=== PATIENT | female | born 1980 | race Caucasian/White ===

== ENCOUNTER → 2017-03-30 | Outpatient (CLI) | payer MEDICAID ==
[2017-03-30 19:01] LABS: BASOPHILS % (AUTO) 0.3 %; EOSINOPHILS # (AUTO) 0.2 10^3/uL (0.0-0.7); HCT - HEMATOCRIT 39.2 % (37.0-47.0); HGB - HEMOGLOBIN 13.1 g/dL (12.0-16.0); LYMPHOCYTES # (AUTO) 2.4 10^3/uL (1.5-3.5); LYMPHOCYTES % (AUTO) 40.4 %; MEAN CORPUSCULAR HEMOGLOBIN 28.2 pg (27.0-31.0); MEAN CORPUSCULAR HGB CONC 33.3 g/dL (32.0-36.0); MEAN CORPUSCULAR VOLUME 84.6 fL (81.0-99.0); MEAN PLATELET VOLUME 10.6 fL (7.9-10.8); MONOCYTES # (AUTO) 0.5 10^3/uL (0.0-1.0); MONOCYTES % (AUTO) 8.7 %; NEUTROPHILS # (AUTO) 2.7 10^3/uL (1.5-6.6); NEUTROPHILS % (AUTO) 46.6 %; RED BLOOD COUNT 4.63 10^6/uL (4.20-5.40); RED CELL DISTRIBUTION WIDTH 14.3 % (12.0-15.0); UNCORRECTED WHITE BLOOD COUNT 5.9 x10^3/uL; WHITE BLOOD COUNT 5.9 x10^3/uL (4.8-10.8)
[2017-03-30 19:30] LABS: ALBUMIN/GLOBULIN RATIO 1.2 (1.0-2.2); BILIRUBIN,TOTAL 0.4 mg/dL (0.2-1.0); BUN - BLOOD UREA NITROGEN 13 mg/dL (6-20); CARBON DIOXIDE - CO2 25 mmol/L (21-32); CHLORIDE 106 mmol/L (101-111); CREATININE 0.7 mg/dL (0.4-1.0); GFR - MDRD 95 (>89); GLUCOSE 86 mg/dL (70-100); POTASSIUM 4.1 mmol/L (3.5-5.0); SODIUM 136 mmol/L (135-145); TOTAL PROTEIN 7.5 g/dL (6.7-8.2)
== END ==
LOC: LAB.N 15:22
PROVIDERS: ATTEND Physician Assistant Medical
DX: Z00.00 Encounter for general adult medical examination without abnormal findings (principal); F32.9 Major depressive disorder, single episode, unspecified; F70 Mild intellectual disabilities; R56.9 Unspecified convulsions; Z51.81 Encounter for therapeutic drug level monitoring
CPT/HCPCS: 36415; 80053; 80177; 84443; 85025

== ENCOUNTER 2017-11-08 11:08 | Outpatient (CLI) | payer MEDICAID | END 2017-11-08 11:09 | LOC: LAB.N 11:08 | PROVIDERS: ATTEND Physician Assistant Medical | DX: Z51.81 Encounter for therapeutic drug level monitoring (principal) | CPT/HCPCS: 36415; 80177 ==

== ENCOUNTER 2018-12-24 13:38 | Outpatient (CLI) | payer MEDICAID ==
--- NOTE | 2018-12-26 02:46 | XRAY Report ---
Reason: WRIST JOINT PAIN Procedure Date: 12/24/2018 Accession Number: [id number] / [id number] Procedure: XRN - Wrist 3 View LT CPT Code: FULL RESULT: EXAM: LEFT WRIST RADIOGRAPHY EXAM DATE: 12/24/2018 02:01 PM. CLINICAL HISTORY: WRIST JOINT PAIN. COMPARISON: None. TECHNIQUE: 3 views. FINDINGS: Bones: No fracture seen. No acute osseous abnormality. Joints: No dislocation seen. Joint spaces appear preserved. Soft Tissues: Mild soft tissue swelling. IMPRESSION: 1. No fracture or dislocation seen. RADIA
== END 2018-12-24 13:39 | disposition home or self-care (01) ==
LOC: DI.N 13:38
PROVIDERS: ATTEND Family Medicine
DX: M25.532 Pain in left wrist (principal)

== ENCOUNTER 2018-12-31 08:00 | Outpatient (CLI) | payer MEDICAID | END 2018-12-31 23:59 | disposition home or self-care (01) | LOC: LAB.N 08:00 | PROVIDERS: ATTEND Physician Assistant Medical | DX: Z51.81 Encounter for therapeutic drug level monitoring (principal) | CPT/HCPCS: 36415; 80177 ==

== ENCOUNTER 2020-10-21 08:00 | Outpatient (CLI) | payer MEDICAID ==
[2020-10-21 17:54] LABS: BASOPHILS # (AUTO) 0.1 10^3/uL (0.0-0.1); BASOPHILS % (AUTO) 0.9 %; EOSINOPHILS # (AUTO) 0.2 10^3/uL (0.0-0.7); EOSINOPHILS % (AUTO) 4.3 %; HCT - HEMATOCRIT 40.4 % (37.0-47.0); HGB - HEMOGLOBIN 12.2 g/dL (12.0-16.0); LYMPHOCYTES # (AUTO) 2.1 10^3/uL (1.5-3.5); MEAN CORPUSCULAR HEMOGLOBIN 25.1 pg (27.0-31.0); MEAN CORPUSCULAR HGB CONC 30.2 g/dL (32.0-36.0); MEAN PLATELET VOLUME 12.1 fL (7.9-10.8); MONOCYTES # (AUTO) 0.5 10^3/uL (0.0-1.0); MONOCYTES % (AUTO) 8.9 %; NEUTROPHILS # (AUTO) 2.7 10^3/uL (1.5-6.6); NEUTROPHILS % (AUTO) 48.7 %; PLT - PLATELET COUNT 328 10^3/uL (130-450); RED BLOOD COUNT 4.87 10^6/uL (4.20-5.40); RED CELL DISTRIBUTION WIDTH 14.6 % (12.0-15.0); WHITE BLOOD COUNT 5.6 x10^3/uL (4.8-10.8)
[2020-10-21 18:06] LABS: ALBUMIN 4.5 g/dL (3.2-5.5); ALBUMIN/GLOBULIN RATIO 1.4 (1.0-2.2); BILIRUBIN,TOTAL 0.5 mg/dL (0.2-1.0); CALCIUM 9.2 mg/dL (8.5-10.3); CREATININE 0.7 mg/dL (0.4-1.0); POTASSIUM 3.9 mmol/L (3.5-5.0); TOTAL PROTEIN 7.7 g/dL (6.7-8.2)
[2020-10-21 18:21] LABS: THYROID STIMULATING HORMONE 1.52 uIU/mL (0.34-5.60)
== END 2020-10-21 23:59 | disposition home or self-care (01) ==
LOC: LAB.WCP 08:00
PROVIDERS: ATTEND Family Medicine
DX: R63.4 Abnormal weight loss (principal); G40.909 Epilepsy, unspecified, not intractable, without status epilepticus
CPT/HCPCS: 36415; 80053; 84443; 85025

== ENCOUNTER 2022-08-21 12:48 | Outpatient (CLI) | payer MEDICAID | END 2022-08-21 12:49 | disposition critical access hospital (66) | LOC: EMS 12:48 | DX: R55 Syncope and collapse (principal) | CPT/HCPCS: A0425; A0429; A0999 ==

== ENCOUNTER 2022-08-21 13:08 | Emergency (ER) | payer MEDICAID ==
[2022-08-21 13:31] LABS: BASOPHILS % (AUTO) 0.6 %; EOSINOPHILS # (AUTO) 0.2 10^3/uL (0.0-0.7); HCT - HEMATOCRIT 36.4 % (37.0-47.0); HGB - HEMOGLOBIN 11.8 g/dL (12.0-16.0); LYMPHOCYTES # (AUTO) 1.3 10^3/uL (1.5-3.5); LYMPHOCYTES % (AUTO) 21.2 %; MEAN CORPUSCULAR HGB CONC 32.4 g/dL (32.0-36.0); MEAN CORPUSCULAR VOLUME 86.3 fL (81.0-99.0); MEAN PLATELET VOLUME 11.2 fL (7.9-10.8); MONOCYTES # (AUTO) 0.5 10^3/uL (0.0-1.0); NEUTROPHILS # (AUTO) 4.2 10^3/uL (1.5-6.6); NEUTROPHILS % (AUTO) 66.9 %; PLT - PLATELET COUNT 211 10^3/uL (130-450); RED BLOOD COUNT 4.22 10^6/uL (4.20-5.40); RED CELL DISTRIBUTION WIDTH 14.2 % (12.0-15.0); WHITE BLOOD COUNT 6.3 x10^3/uL (4.8-10.8)
[2022-08-21 13:42] LABS: ALBUMIN 3.4 g/dL (3.2-5.5); ALBUMIN/GLOBULIN RATIO 1.2 (1.0-2.2); BILIRUBIN,TOTAL 0.3 mg/dL (0.2-1.0); CALCIUM 8.1 mg/dL (8.5-10.3); CREATININE 0.7 mg/dL (0.4-1.0); POTASSIUM 3.2 mmol/L (3.5-5.0); TOTAL PROTEIN 6.3 g/dL (6.7-8.2)
--- NOTE | 2022-08-21 13:52 | ED Physician Documentation ---
History of Present Illness - Stated complaint Stated Complaint: SYNCOPE - Chief complaint Chief Complaint: Neuro - History obtained from History obtained from: Patient, EMS - Additonal information Additional information: The patient is brought to the emergency department via EMS for chief complaint of a near syncopal episode while at work at am-pm today. The patient states that she was at work and standing up when she suddenly began to feel dizzy. She leaned back against the wall and was reported to get a blank look on her face and slide down a sitting position on the floor. The patient remembers not feeling well and feeling dizzy but did not lose consciousness. She did not hit her head. The patient states she still feeling lightheaded and does note that she never ate anything today. She also admits she has not been drinking very much water. She states this kind of thing has happened to her before but nobody has ever been able to find anything wrong. She denies any chest pain or s hortness of breath. No palpitations. She denies any nausea or vomiting. No other complaints at this time. She has not been ill with anything recently. She is not a diabetic. PD PAST MEDICAL HISTORY - Past Medical History Cardiovascular: None Respiratory: None Endocrine/Autoimmune: None GI: None : None HEENT: None, Other Psych: Depression Musculoskeletal: None Derm: Other - Past Surgical History Past Surgical History: No - Present Medications Home Medications: Ambulatory Orders Medication Instructions Recorded Confirmed Citalopram Hydrobromide 20 mg PO DAILY 04/06/16 04/06/16 [Citalopram HBr] Acetaminophen [Tylenol] 650 mg PO Q4HR PRN #0 tablet 04/07/16 Levetiracetam [Keppra] 500 mg PO BID #60 tablet 04/07/16 - Allergies Allergies/Adverse Reactions: Allergies Allergy/AdvReac Type Severity Reaction Status Date / Time No Known Drug Allergies Allergy Verified 08/21/22 13:17 - Social History Does the pt smoke?: No Smoking Status: Never smoker Does the pt drink ETOH?: No Does the pt have substance abuse?: No PD ED PE NORMAL - Vitals Vital signs reviewed: Yes - General General: Alert and oriented X 3, No acute distress, Well developed/nourished - HEENT HEENT: Atraumatic, PERRL, EOMI, Moist mucous membranes - Neck Neck: Supple, no meningeal sign - Cardiac Cardiac: RRR, No murmur, Strong equal pulses - Respiratory Respiratory: No respiratory distress, Clear bilaterally - Abdomen Abdomen: Soft, Non tender, Non distended - Derm Derm: Warm and dry, No rash, Other (Mild pallor) - Extremities Extremities: No deformity, No edema - Neuro Neuro: Alert and oriented X 3, veterans rehabilitation counselor 2-12 intact, No motor deficit, No sensory deficit, Normal speech - Psych Psych: Normal mood, Normal affect Results - Vitals Vitals: Oxygen O2 Source Room air - Labs Labs: Laboratory Tests 08/21/22 08/21/22 13:25 13:25 WBC 6.3 RBC 4.22 Hgb 11.8 L Hct 36.4 L MCV 86.3 MCH 28.0 MCHC 32.4 RDW 14.2 Plt Count 211 MPV 11.2 H Neut # (Auto) 4.2 Lymph # (Auto) 1.3 L [place] # (Auto) 0.5 Eos # (Auto) 0.2 Baso # (Auto) 0.0 Absolute Nucleated RBC 0.00 Nucleated RBC % 0.0 Sodium 137 Potassium 3.2 L Chloride 107 Carbon Dioxide 25 Anion Gap 5.0 L BUN 9 Creatinine 0.7 Estimated GFR (MDRD) 92 Glucose 108 H Calcium 8.1 L Total Bilirubin 0.3 AST 15 ALT 11 Alkaline Phosphatase 56 Total Protein 6.3 L Albumin 3.4 Globulin 2.9 Albumin/Globulin Ratio 1.2 Lipase 65 H PD Medical Decision Making - ED course Complexity details: reviewed results, re-evaluated patient, considered differential, d/w patient ED course: The patient was given IV fluids in the emergency department and worked up with laboratory studies, including CBC and ER abdominal panel, all of which were unremarkable. EKG was also unremarkable. It was not clear exactly what had caused the patient's symptoms though I suspected the lack of eating and not drinking enough are probably the culprits. I discussed with the patient the need to get nutritious food and to be sure she is drinking enough water. We discussed the usual indications for follow-up and return. Departure - Departure Disposition: 01 Home, Self Care Clinical Impression: Episodes of staring, Near syncope Condition: Stable Instructions: ED Near Syncope Unkn Comments: Your labs and EKG look good. There is no evidence of an emergent condition causing your symptoms. Please follow-up with your primary care physician as needed and continue your usual medications. Discharge Date/Time: 08/21/22 14:20
[2022-08-21 14:09] VITALS: BP 103/69
== END 2022-08-21 14:20 | disposition home or self-care (01) ==
LOC: EDUNIT# → ED 13:08
DX: R55 Syncope and collapse (principal)
CPT/HCPCS: 36415; 80053; 83690; 85025; 93005; 99283; 99284

== ENCOUNTER 2023-01-18 19:56 | Outpatient (CLI) | payer MEDICAID | END 2023-01-18 23:59 | disposition critical access hospital (66) | LOC: EMS 19:56 | DX: R56.9 Unspecified convulsions (principal) | CPT/HCPCS: A0425; A0429; A0999 ==

== ENCOUNTER 2023-01-18 20:17 | Emergency (ER) | payer MEDICAID ==
--- NOTE | 2023-01-18 20:21 | ED Physician Documentation ---
PD HPI SEIZURE - Stated complaint Stated Complaint: SZ - History obtained from History obtained from: Patient, EMS - Additional information Additional information: 42-year-old woman with history of autism and epilepsy. Last seizure per her may be a few months ago. Maintained on Keppra and carbamazepine for same. No recent dose changes. Had a 30-sec to 1-minute seizure today with postictal period, now back to normal. She is feeling fine now and. No report of headache. Shoulders are without pain. No incontinence or bitten tongue. PD PAST MEDICAL HISTORY - Past Medical History Cardiovascular: None Respiratory: None Endocrine/Autoimmune: None GI: None : None HEENT: None, Other Psych: Depression Musculoskeletal: None Derm: Other - Past Surgical History Past Surgical History: No - Present Medications Home Medications: Ambulatory Orders Medication Instructions Recorded Confirmed Citalopram Hydrobromide 20 mg PO DAILY 04/06/16 01/18/23 [Citalopram HBr] Levetiracetam [Keppra] 500 mg PO BID #60 tablet 04/07/16 01/18/23 carBAMazepine [TEGretol] 200 mg PO BID 01/18/23 01/18/23 - Allergies Allergies/Adverse Reactions: Allergies Allergy/AdvReac Type Severity Reaction Status Date / Time No Known Drug Allergies Allergy Verified 08/21/22 13:17 - Social History Does the pt smoke?: No Smoking Status: Never smoker Does the pt drink ETOH?: No Does the pt have substance abuse?: No PD ED PE NORMAL - Vitals Vital signs reviewed: Yes - General General: Alert and oriented X 3, Other (Some problems with interactions related to autism) - HEENT HEENT: PERRL, EOMI, Other (No tongue injury) - Neck Neck: Supple, no meningeal sign, No bony TTP - Cardiac Cardiac: RRR, No murmur - Respiratory Respiratory: No respiratory distress, Clear bilaterally - Abdomen Abdomen: Non tender - Extremities Extremities: Other (Full range of motion at all major joints) - Neuro Neuro: Alert and oriented X 3, Normal speech Results - Vitals Vitals: Vital Signs - 24 hr 01/18/23 20:28 Temperature 36.4 C L Heart Rate 120 H Respiratory 18 Rate Blood Pressure 99/74 O2 Saturation 97 Oxygen O2 Source Room air - Labs Labs: Laboratory Tests 01/18/23 20:27 Sodium 137 Potassium 3.7 Chloride 103 Carbon Dioxide 28 Anion Gap 6.0 BUN 8 Creatinine 0.8 Estimated GFR (MDRD) 79 L Glucose 87 Calcium 9.1 Carbamazepine 0.6 PD Medical Decision Making - ED course ED course: 42-year-old woman with epilepsy had a seizure tonight. Exam normal now. No injuries. Carbamazepine level subtherapeutic at 0.6 and loaded with 300 mg here. We do not have rapid turnaround time for her levetiracetam. Departure - Departure Disposition: 01 Home, Self Care Clinical Impression: Seizure Condition: Good Record reviewed to determine appropriate education?: Yes Instructions: ED Seizure Recurrent Comments: You are seen tonight for seizure. We did note that your carbamazepine level was quite low at 0.6. This is subtherapeutic. We gave you an extra dose here. Follow-up with your neurologist, next available appointment for review of your antiepileptic medication dosing. No driving until cleared by neurology. Return for new or worsening symptoms.
[2023-01-18 20:50] LABS: BUN - BLOOD UREA NITROGEN 8 mg/dL (6-20); CALCIUM 9.1 mg/dL (8.5-10.3); CARBAMAZEPINE (TEGRETOL) 0.6 ug/mL; CARBON DIOXIDE - CO2 28 mmol/L (21-32); CHLORIDE 103 mmol/L (101-111); CREATININE 0.8 mg/dL (0.6-1.3); GFR - MDRD 79 (>89); GLUCOSE 87 mg/dL (74-104); POTASSIUM 3.7 mmol/L (3.5-4.5); SODIUM 137 mmol/L (135-145)
[2023-01-18 21:19] VITALS: O2SAT 100
[2023-01-18] MEDS ORDERED: carBAMazepine 200 MG TABLET PO STA (21:19)
[2023-01-18 22:07] VITALS: BP 100/60
== END 2023-01-18 22:04 | disposition home or self-care (01) ==
LOC: EDUNIT# → ED 20:17
DX: R56.9 Unspecified convulsions (principal)
CPT/HCPCS: 36415; 80048; 80156; 99283; 99284; A9270

== ENCOUNTER 2023-01-18 23:36 | Outpatient (CLI) | payer MEDICAID | END 2023-01-18 23:59 | disposition critical access hospital (66) | LOC: EMS 23:36 | DX: R56.9 Unspecified convulsions (principal) | CPT/HCPCS: A0425; A0429; A0999 ==

== ENCOUNTER 2023-01-18 23:58 | Emergency (ER) | payer MEDICAID ==
--- NOTE | 2023-01-19 02:07 | ED Physician Documentation ---
History of Present Illness - Stated complaint Stated Complaint: SZ - Chief complaint Chief Complaint: Neuro - History obtained from History obtained from: Patient - Additonal information Additional information: 42yF with hx epilepsy on carpamazepine 200 bid and keppra 500 bid p/w [facility] for seizure. patient is in nad here in the ED, AOX3. asymptomatic at present. states she is "usually" compliant with meds but her carbamazepine level was subtherapeutic earlier, suggesting possibly missing doses. Review of Systems Constitutional: reports: Fatigue. denies: Fever, Chills Nose: denies: Rhinorrhea / runny nose Throat: denies: Sore throat Cardiac: denies: Chest pain / pressure Respiratory: denies: Dyspnea, Cough GI: denies: Abdominal Pain, Nausea, Vomiting, Diarrhea Neurologic: reports: Seizure. denies: Head injury PD PAST MEDICAL HISTORY - Past Medical History Cardiovascular: None Respiratory: None Neuro: Seizure disorder Endocrine/Autoimmune: None GI: None : None HEENT: None, Other Psych: Depression Musculoskeletal: None Derm: Other - Past Surgical History Past Surgical History: No - Present Medications Home Medications: Ambulatory Orders Medication Instructions Recorded Confirmed Citalopram Hydrobromide 20 mg PO DAILY 04/06/16 01/18/23 [Citalopram HBr] Levetiracetam [Keppra] 500 mg PO BID #60 tablet 04/07/16 01/18/23 carBAMazepine [TEGretol] 200 mg PO BID 01/18/23 01/18/23 - Allergies Allergies/Adverse Reactions: Allergies Allergy/AdvReac Type Severity Reaction Status Date / Time No Known Drug Allergies Allergy Verified 01/19/23 00:08 - Social History Does the pt smoke?: No Smoking Status: Never smoker Does the pt drink ETOH?: No Does the pt have substance abuse?: No PD ED PE NORMAL - Vitals Vital signs reviewed: Yes - General General: Alert and oriented X 3, No acute distress, Well developed/nourished - HEENT HEENT: Atraumatic, PERRL, EOMI - Neck Neck: Supple, no meningeal sign - Cardiac Cardiac: RRR - Respiratory Respiratory: No respiratory distress, Clear bilaterally - Abdomen Abdomen: Non tender, Non distended - Derm Derm: Normal color, Warm and dry - Extremities Extremities: No deformity - Neuro Neuro: Alert and oriented X 3, stonemason helper 2-12 intact, No motor deficit, No sensory deficit, Normal speech Eye Opening: Spontaneous Motor: Obeys Commands Verbal: Oriented GCS Score: 15 - Psych Psych: Normal mood, Normal affect Results - Vitals Vitals: Vital Signs - 24 hr 01/19/23 01/19/23 00:04 00:08 Temperature 36.5 C Heart Rate 113 H Respiratory 20 16 Rate Blood Pressure 96/63 O2 Saturation 97 Oxygen O2 Source Room air PD Medical Decision Making - ED course ED course: 42yF presented to the ED after being seen earlier for seizure. she was discharged and had a second GTC seizure and came back. AOX3 with normal exam here in the ED. Afer period of observation plan is to have her follow up outpatient with neurologist. Departure - Departure Clinical Impression: Seizure Condition: Stable Instructions: Epilepsy Dx Comments: You were seen in the emergency department for seizure. Please follow-up with your neurologist and return to the emergency department if you have any new or worsening symptoms or other concerns.
[2023-01-19 06:52] VITALS: BP 110/81; O2SAT 95
== END 2023-01-19 06:55 | disposition home or self-care (01) ==
LOC: ED 23:58
DX: R56.9 Unspecified convulsions (principal)

== ENCOUNTER 2023-02-17 07:30 | Outpatient (CLI) | payer MEDICAID | END 2023-02-17 07:31 | disposition critical access hospital (66) | LOC: EMS 07:30 | DX: M54.9 Dorsalgia, unspecified (principal); R26.2 Difficulty in walking, not elsewhere classified | CPT/HCPCS: A0425; A0429; A0999 ==

== ENCOUNTER 2023-02-17 07:45 | Emergency (ER) | payer MEDICAID ==
[2023-02-17] MEDS ORDERED: SODIUM CHLORIDE 0.9% 1,000 ML IV STA (08:14)
[2023-02-17] MEDS ORDERED: KETOROLAC 15 MG/ML VIAL IVP STA (08:14)
[2023-02-17] MEDS ORDERED: HYDROmorphone 0.5 MG/0.5 ML SYRINGE IVP STA (08:14)
--- NOTE | 2023-02-17 08:16 | ED Physician Documentation ---
PD HPI BACK PAIN - Stated complaint Stated Complaint: LOWER BACK PX - Chief complaint Chief Complaint: Back Pain - History obtained from History obtained from: Patient - History of Present Illness Timing - onset: Yesterday Timing - duration: Days (1) Timing - details: Gradual onset (She states onset of lower to mid back pain yesterday that has increased overnight and now associated with a generalized muscle and body aches and feeling of fatigue. She feels somewhat chilled. No fever per se. Denies upper respiratory symptoms. Denies any injury or falls with the back pain.), Still present, Other (she twisted her ankle a week ago and was limping on swollen ankle, but did not hurt back at that time. Ankle has improved the past few days.) Location: Mid, Lower Quality: Pain, Aching. No: Spasm Associated symptoms: No: Fever, Weakness, Numbness, Incontinent of urine Improves with: No: Rest Worsened by: Movement, Twisting Contributing factors: Trauma (ankle sprain a week ago without back injury then.). No: Lifting, Twisting Similar symptoms before: Has not had sx before Recently seen: Not recently seen Review of Systems Constitutional: reports: Myalgias, Fatigue. denies: Fever, Chills Nose: denies: Rhinorrhea / runny nose, Congestion Throat: denies: Sore throat Cardiac: denies: Chest pain / pressure Respiratory: denies: Dyspnea, Cough GI: denies: Abdominal Pain, Nausea : denies: Incontinent Musculoskeletal: reports: Back pain. denies: Neck pain Neurologic: denies: Focal weakness, Numbness PD PAST MEDICAL HISTORY - Past Medical History Cardiovascular: None Respiratory: None Neuro: Seizure disorder Endocrine/Autoimmune: None GI: None : None HEENT: None, Other Psych: Depression Musculoskeletal: None Derm: Other - Past Surgical History Past Surgical History: No - Present Medications Home Medications: Ambulatory Orders Medication Instructions Recorded Confirmed Citalopram Hydrobromide 20 mg PO DAILY 04/06/16 01/18/23 [Citalopram HBr] Levetiracetam [Keppra] 500 mg PO BID #60 tablet 04/07/16 01/18/23 carBAMazepine [TEGretol] 200 mg PO BID 01/18/23 01/18/23 HYDROcod/ACETAM 5/325 [[place] 5/325] 1 ea PO Q6H PRN #12 tablet 02/17/23 Ibuprofen [Motrin] 600 mg PO TID PRN #25 tab 02/17/23 - Allergies Allergies/Adverse Reactions: Allergies Allergy/AdvReac Type Severity Reaction Status Date / Time No Known Drug Allergies Allergy Verified 01/19/23 00:08 - Social History Does the pt smoke?: No Smoking Status: Never smoker Does the pt drink ETOH?: No Does the pt have substance abuse?: No - Immunizations Immunizations: TDAP >10years/unknown - POLST Patient has POLST: No PD ED PE NORMAL - Vitals Vital signs reviewed: Yes - General General: Alert and oriented X 3, Well developed/nourished, Other (somewhat anxious and seems uncomfrtable. Not guarding ROM of the back. ) - Neck Neck: Supple, no meningeal sign, No adenopathy - Cardiac Cardiac: RRR, No murmur - Respiratory Respiratory: Clear bilaterally - Abdomen Abdomen: Soft, Non tender - Derm Derm: Normal color, Warm and dry - Extremities Extremities: Normal ROM s pain, Other (no redness nor warmth of major joints. ) - Neuro Neuro: Alert and oriented X 3, No motor deficit, No sensory deficit, Normal speech Results - Vitals Vitals: Oxygen O2 Source Room air - Labs Labs: Laboratory Tests 02/17/23 02/17/23 02/17/23 08:23 08:23 08:23 WBC 5.5 RBC 4.56 Hgb 12.0 Hct 38.5 MCV 84.4 MCH 26.3 L MCHC 31.2 L RDW 14.2 Plt Count 227 MPV 10.8 Neut # (Auto) 4.4 Lymph # (Auto) 0.5 L [place] # (Auto) 0.4 Eos # (Auto) 0.2 Baso # (Auto) 0.0 Absolute Nucleated RBC 0.00 Nucleated RBC % 0.0 Sodium 138 Potassium 4.1 Chloride 105 Carbon Dioxide 27 Anion Gap 6.0 BUN 12 Creatinine 0.9 Estimated GFR (MDRD) 69 L Glucose 93 Lactic Acid 0.8 Calcium 9.2 Total Bilirubin 0.3 AST 16 ALT 9 L Alkaline Phosphatase 80 Total Creatine Kinase 59 Total Protein 6.9 Albumin 4.3 Globulin 2.6 Albumin/Globulin Ratio 1.7 Lipase 79 Nasal Adenovirus (PCR) Nasal B. parapertussis DNA (PCR) Nasal Coronavir 229E PCR Nasal Coronavir HKU1 PCR Nasal Coronavir NL63 PCR Nasal Coronavir OC43 PCR Nasal Enterovir/Rhinovir PCR Nasal Influenza B PCR Nasal Influenza A PCR Nasal Parainfluen 1 PCR Nasal Parainfluen 2 PCR Nasal Parainfluen 3 PCR Nasal Parainfluen 4 PCR Nasal RSV (PCR) Nasal B.pertussis DNA PCR Nasal C.pneumoniae (PCR) [place] Human Metapneumo PCR Nasal M.pneumoniae (PCR) Nasal SARS-CoV-2 (PCR) Last Dose Date Last Dose Time Carbamazepine 02/17/23 02/17/23 08:25 08:49 WBC RBC Hgb Hct MCV MCH MCHC RDW Plt Count MPV Neut # (Auto) Lymph # (Auto) [place] # (Auto) Eos # (Auto) Baso # (Auto) Absolute Nucleated RBC Nucleated RBC % Sodium Potassium Chloride Carbon Dioxide Anion Gap BUN Creatinine Estimated GFR (MDRD) Glucose Lactic Acid Calcium Total Bilirubin AST ALT Alkaline Phosphatase Total Creatine Kinase Total Protein Albumin Globulin Albumin/Globulin Ratio Lipase Nasal Adenovirus (PCR) NOT DETECTED Nasal B. parapertussis DNA (PCR) NOT DETECTED Nasal Coronavir 229E PCR NOT DETECTED Nasal Coronavir HKU1 PCR NOT DETECTED Nasal Coronavir NL63 PCR NOT DETECTED Nasal Coronavir OC43 PCR NOT DETECTED Nasal Enterovir/Rhinovir PCR NOT DETECTED Nasal Influenza B PCR NOT DETECTED Nasal Influenza A PCR NOT DETECTED Nasal Parainfluen 1 PCR NOT DETECTED Nasal Parainfluen 2 PCR NOT DETECTED Nasal Parainfluen 3 PCR NOT DETECTED Nasal Parainfluen 4 PCR NOT DETECTED Nasal RSV (PCR) NOT DETECTED Nasal B.pertussis DNA PCR NOT DETECTED Nasal C.pneumoniae (PCR) NOT DETECTED [place] Human Metapneumo PCR NOT DETECTED Nasal M.pneumoniae (PCR) NOT DETECTED Nasal SARS-CoV-2 (PCR) DETECTED A Last Dose Date UNKNOWN Last Dose Time UNKNOWN Carbamazepine < 0.5 PD Medical Decision Making - ED course Complexity details: reviewed results, considered differential (back pain and now general myalgias. Consider early viral illness, but will check for muscle breakdown, white count, electrolyte poblems. No recent new meds. ), d/w patient ED course: History of some chronic back pain that is worse without red flags per se. General myalgias and feeling not well. blood testing with normal WBC, negative lactate, and clinical exam without concerning features. Viral testing positive for COVID, so presume her symptoms are the viral prodrome. Carbamazepine level is low so not any toxicity from that. Had Social Work talk with the patient and to see if there were any resources available from [facility] for COVID in the undomiciled. No resources have continued, per . Departure - Departure Disposition: 01 Home, Self Care Clinical Impression: Back pain, Myalgia, COVID-19 Condition: Stable Record reviewed to determine appropriate education?: Yes Instructions: ED Neck Back Pain General, ED Viral Syndrome Prescriptions: Ibuprofen [Motrin] 600 mg PO TID PRN #25 tab PRN Reason: Pain HYDROcod/ACETAM 5/325 [[place] 5/325] 1 ea PO Q6H PRN #12 tablet PRN Reason: Pain Comments: Your basic blood test did not show any abnormalities to suggest a more severe cause of your symptoms. I presume you are having the muscle aches and back pain related to an early viral illness. Your respiratory panel was positive for COVID so that is likely the early symptoms coming from that. I would anticipate having body aches and likely developing some fevers and respiratory symptoms over the next day or 2 and lasting about 5 to 7 days. Stay well-hydrated. Use the mild peer of your antiviral medicine to help try to decrease symptoms. Follow the bottle instructions. I also prescribed a combination of some anti-inflammatories of ibuprofen and higher strength along with some pain medicine to use for your back pain and other pains. I sent them to the [facility] in [place], your preferred pharmacy. Otherwise you can use [id number] medication of ibuprofen or naproxen and Tylenol. Return to the ER if worsening. I am prescribing a short course of narcotic pain medication for you. These are potentially dangerous and addictive medications that should be used carefully. These medications may constipate you. Take an [id number] stool softener such as docusate twice daily with plenty of water while taking these medications. If you go 24 hours without a bowel movement, take [id number] MiraLAX, per package instructions. Do not drink or drive while taking these medications. If you received narcotic or sedating medications while in the emergency department do not drive for 24 hours. Store this medication in a safe, secure place and out of reach of children. It is a violation of federal law to give or sell this medication to another person or to use in a manner other than prescribed. The ED will not refill narcotic prescriptions, including prescriptions lost or stolen. You can dispose of unwanted medications at the [facility] office or at several pharmacies such as [facility]. Discharge Date/Time: 02/17/23 11:30
[2023-02-17 08:27] LABS: BASOPHILS % (AUTO) 0.5 %; EOSINOPHILS # (AUTO) 0.2 10^3/uL (0.0-0.7); EOSINOPHILS % (AUTO) 2.9 %; HCT - HEMATOCRIT 38.5 % (37.0-47.0); LYMPHOCYTES # (AUTO) 0.5 10^3/uL (1.5-3.5); MEAN CORPUSCULAR HEMOGLOBIN 26.3 pg (27.0-31.0); MEAN CORPUSCULAR HGB CONC 31.2 g/dL (32.0-36.0); MEAN CORPUSCULAR VOLUME 84.4 fL (81.0-99.0); MEAN PLATELET VOLUME 10.8 fL (7.9-10.8); MONOCYTES # (AUTO) 0.4 10^3/uL (0.0-1.0); MONOCYTES % (AUTO) 7.8 %; NEUTROPHILS # (AUTO) 4.4 10^3/uL (1.5-6.6); NEUTROPHILS % (AUTO) 79.8 %; PLT - PLATELET COUNT 227 10^3/uL (130-450); RED BLOOD COUNT 4.56 10^6/uL (4.20-5.40); RED CELL DISTRIBUTION WIDTH 14.2 % (12.0-15.0); WHITE BLOOD COUNT 5.5 x10^3/uL (4.8-10.8)
[2023-02-17 08:46] LABS: ALBUMIN 4.3 g/dL (3.2-5.5); ALBUMIN/GLOBULIN RATIO 1.7 (1.0-2.2); BILIRUBIN,TOTAL 0.3 mg/dL (0.2-1.0); CALCIUM 9.2 mg/dL (8.5-10.3); CREATININE 0.9 mg/dL (0.6-1.3); POTASSIUM 4.1 mmol/L (3.5-4.5); TOTAL PROTEIN 6.9 g/dL (6.4-8.9)
[2023-02-17] MEDS ORDERED: oxyCODONE 5 MG TABLET PO STA (08:53)
[2023-02-17] MEDS ORDERED: IBUPROFEN 600 MG TABLET PO STA (08:53)
[2023-02-17] MEDS ORDERED: ACETAMINOPHEN 325 MG TABLET PO STA (08:54)
[2023-02-17 09:47] LABS: B. PARAPERTUSSIS- RESP PCR PAN NOT DETECTED; B. PERTUSSIS- RESP PCR PANEL NOT DETECTED; C. PNEUMONIAE- RESP PCR PANEL NOT DETECTED; CORONAVIRUS 229E-RESP PCR NOT DETECTED; CORONAVIRUS HKU1-RESP PCR NOT DETECTED; CORONAVIRUS NL63-RESP PCR NOT DETECTED; CORONAVIRUS OC43-RESP PCR NOT DETECTED; HUMAN METAPNEUMOVIRUS NOT DETECTED; INFLUENZA A- RESP PCR PANEL NOT DETECTED; INFLUENZA B - RESP PCR PANEL NOT DETECTED; M. PNEUMONIAE- RESP PCR PANEL NOT DETECTED; PARAINFLUENZA VIRUS 1 NOT DETECTED; PARAINFLUENZA VIRUS 2 NOT DETECTED; PARAINFLUENZA VIRUS 3 NOT DETECTED; PARAINFLUENZA VIRUS 4 NOT DETECTED; RHINOVIRUS/ENTEROVIRUS NOT DETECTED; RSV- RESP PCR PANEL NOT DETECTED
[2023-02-17 09:49] LABS: SARS-CoV-2 -RESP PCR PANEL DETECTED
[2023-02-17] MEDS ORDERED: MOLNUPIRAVIR PREPACK PO STA (10:12)
[2023-02-17 10:37] LABS: CARBAMAZEPINE (TEGRETOL) < 0.5 ug/mL
[2023-02-17 11:30] VITALS: BP 97/67; O2SAT 95
== END 2023-02-17 11:30 | disposition home or self-care (01) ==
LOC: ED 07:45
DX: M54.50 Low back pain, unspecified (principal); U07.1 COVID-19; M79.10 Myalgia, unspecified site
CPT/HCPCS: 36415; 80053; 80156; 82550; 83605; 83690; 85025; 87633; 99283; 99284; A9270; J3490

== ENCOUNTER 2023-02-20 14:59 | Outpatient (CLI) | payer MEDICAID | END 2023-02-20 15:00 | disposition critical access hospital (66) | LOC: EMS 14:59 | DX: R56.9 Unspecified convulsions (principal); Z59.00 Homelessness unspecified | CPT/HCPCS: A0425; A0429; A0999 ==

== ENCOUNTER 2023-02-20 15:25 | Emergency (ER) | payer MEDICAID ==
--- NOTE | 2023-02-20 15:37 | ED Physician Documentation ---
PD HPI SEIZURE - Stated complaint Stated Complaint: SZ - History obtained from History obtained from: Patient, EMS - Additional information Additional information: 42-year-old woman with epilepsy presents after 2 grand mal seizures today. She is still mildly postictal on arrival so unclear when her last seizure was, but she was here twice last month for seizures. She states has been compliant with her medications, but her pill bottles accompany her. She is post to be taking Keppra twice a day and carbamazepine twice a day. There are pill bottles for each dated February 02 with 60 pills each, the carbamazepine bottle has 60 pills still in it, the Keppra bottle strangely has 83 pills in it. PD PAST MEDICAL HISTORY - Past Medical History Cardiovascular: None Respiratory: None Neuro: Seizure disorder Endocrine/Autoimmune: None GI: None : None HEENT: None, Other Psych: Depression Musculoskeletal: None Derm: Other - Past Surgical History Past Surgical History: No - Present Medications Home Medications: Ambulatory Orders Medication Instructions Recorded Confirmed Citalopram Hydrobromide 20 mg PO DAILY 04/06/16 01/18/23 [Citalopram HBr] Levetiracetam [Keppra] 500 mg PO BID #60 tablet 04/07/16 01/18/23 carBAMazepine [TEGretol] 200 mg PO BID 01/18/23 01/18/23 HYDROcod/ACETAM 5/325 [[place] 5/325] 1 ea PO Q6H PRN #12 tablet 02/17/23 Ibuprofen [Motrin] 600 mg PO TID PRN #25 tab 02/17/23 - Allergies Allergies/Adverse Reactions: Allergies Allergy/AdvReac Type Severity Reaction Status Date / Time No Known Drug Allergies Allergy Verified 01/19/23 00:08 - Social History Does the pt smoke?: No Smoking Status: Never smoker Does the pt drink ETOH?: No Does the pt have substance abuse?: No - Immunizations Immunizations: TDAP >10years/unknown - POLST Patient has POLST: No PD ED PE NORMAL - Vitals Vital signs reviewed: Yes - General General: No acute distress, Well developed/nourished - HEENT HEENT: PERRL, EOMI - Neck Neck: Supple, no meningeal sign, No bony TTP - Neuro Neuro: Alert and oriented X 3 Eye Opening: Spontaneous Motor: Obeys Commands Verbal: Confused (mild) GCS Score: 14 Results - Vitals Vitals: Vital Signs - 24 hr 02/20/23 15:41 Temperature 37.0 C Heart Rate 98 Respiratory 16 Rate Blood Pressure 109/66 O2 Saturation 100 Oxygen O2 Source Room air - Labs Labs: Laboratory Tests 02/20/23 15:48 Sodium 137 Potassium 3.9 Chloride 101 Carbon Dioxide 27 Anion Gap 9.0 BUN 8 Creatinine 0.9 Estimated GFR (MDRD) 69 L Glucose 93 Calcium 9.4 Last Dose Date UNKNOWN Last Dose Time UNKNOWN Carbamazepine < 0.5 PD Medical Decision Making - ED course ED course: 42-year-old woman with uncontrolled seizure disorder likely related to medical noncompliance given above. Her carbamazepine level was undetectable as well. She was counseled to take her antiepileptics as prescribed and follow-up with her neurologist. Departure - Departure Disposition: 01 Home, Self Care Clinical Impression: Seizure Condition: Good Record reviewed to determine appropriate education?: Yes Instructions: ED Seizure Recurrent Comments: Your carbamazepine level was undetectable, and the pill bottle you have with you is completely full despite having been filled over 2 weeks ago. You really need to take your medications as they are prescribed, taking both the Keppra and the carbamazepine twice a day. You should also follow-up with your neurologist given that your seizure disorder is out of control. Call tomorrow for the next available appointment. Forms: PCP List Discharge Date/Time: 02/20/23 17:24
[2023-02-20 15:52] VITALS: BP 109/66; O2SAT 100
[2023-02-20 16:11] LABS: BUN - BLOOD UREA NITROGEN 8 mg/dL (6-20); CALCIUM 9.4 mg/dL (8.5-10.3); CARBON DIOXIDE - CO2 27 mmol/L (21-32); CHLORIDE 101 mmol/L (101-111); CREATININE 0.9 mg/dL (0.6-1.3); GFR - MDRD 69 (>89); GLUCOSE 93 mg/dL (74-104); POTASSIUM 3.9 mmol/L (3.5-4.5); SODIUM 137 mmol/L (135-145)
[2023-02-20 16:12] LABS: CARBAMAZEPINE (TEGRETOL) < 0.5 ug/mL
[2023-02-20] MEDS ORDERED: levETIRAcetam 250 MG TABLET PO STA (16:45)
[2023-02-20] MEDS ORDERED: carBAMazepine 200 MG TABLET PO STA (16:46)
== END 2023-02-20 17:24 | disposition home or self-care (01) ==
LOC: EDUNIT# → ED 15:25
DX: R56.9 Unspecified convulsions (principal); Z91.148 Patient's other noncompliance with medication regimen for other reason
CPT/HCPCS: 36415; 80048; 80156; 99283; A9270